=== PATIENT | male | born 2000 | race Caucasian/White ===

== ENCOUNTER 2020-03-07 14:19 | Emergency (ER) | payer OTHER ==
[~2020-03-07] VITALS: Ht 185.4 cm; Wt 81.6 kg
[2020-03-07 14:19] VITALS: BP 124/91
--- NOTE | 2020-03-07 14:48 | NUR ---
wound cleansed with ns pat dry, derma conroy applied as per md ordered
--- NOTE | 2020-03-07 15:03 | NUR ---
Patient discharged to home in stable condition. Written and verbal after care instructions given. Patient verbalizes understanding of instruction.ambulatory with a steady gait
== END 2020-03-07 15:30 | disposition home or self-care (01) ==
LOC: ER 14:23
DX: S61.412A Laceration without foreign body of left hand, initial encounter (principal); W26.9XXA Contact with unspecified sharp object(s), initial encounter; Y93.89 Activity, other specified; Y92.89 Other specified places as the place of occurrence of the external cause; Y99.8 Other external cause status